=== PATIENT | male | born 1965 | race Caucasian/White ===

== ENCOUNTER 2022-06-17 22:51 | Emergency (ER) | payer MEDICAID ==
[~2022-06-17] VITALS: Ht 180.3 cm; Wt 97.5 kg
[2022-06-17 23:45] VITALS: BP 181/130
--- NOTE | 2022-06-17 23:45 | NUR ---
BIBSELF C/O SOB X 4 DAYS GADIEL WORSE AT NIGHT. PATIENT IS ANXIOUS. BILATERAL LUNGS ARE CLEAR. PLACED COMFORTABLY IN BED. VITALS CHECKED.
--- NOTE | 2022-06-18 00:30 | NUR ---
VIDAL LOPES MD MADE AWARE.
== END 2022-06-18 01:00 | disposition left against medical advice (07) ==
LOC: ER 22:54
DX: R06.02 Shortness of breath (principal); Z53.21 Procedure and treatment not carried out due to patient leaving prior to being seen by health care provider